=== PATIENT | male | born 1985 | race African-American/Black ===

== ENCOUNTER 2020-09-11 13:16 | Emergency (ER) | payer OTHER ==
[~2020-09-11] VITALS: Ht 185.4 cm; Wt 107.0 kg
[2020-09-11 13:20] VITALS: BP 128/85
--- NOTE | 2020-09-11 14:00 | NUR ---
per report triage patient Dc from [facility] .Noted agitation walking in the [address] back and forth Dr. ambrocio aware .
[2020-09-11] MEDS ORDERED: LORAZEPAM INJ 2 MG/ML VIAL ONE (14:30)
--- NOTE | 2020-09-11 14:51 | NUR ---
Patient is calm @ this time continue to monitor .
[2020-09-11 14:57] LABS: BASOPHILS # (AUTO) 0.1 /CMM (0.0-0.2); BASOPHILS % (AUTO) 1.3 % (0.0-2.0); EOSINOPHILS % (AUTO) 0.4 % (0.0-6.0); HEMATOCRIT 42 % (39-51); HEMOGLOBIN 14.2 g/dL (13.5-17.5); LYMPHOCYTES # (AUTO) 2.2 /CMM (0.8-4.8); LYMPHOCYTES % (AUTO) 26.2 % (20.0-44.0); MEAN CORPUSCULAR HGB CONC 34 g/dl (31.0-36.0); MEAN CORPUSCULAR VOLUME 88 fL (80-96); MONOCYTES # (AUTO) 0.6 /CMM (0.1-1.30); MONOCYTES % (AUTO) 7.2 % (2.0-12.0); NEUTROPHILS # (AUTO) 5.5 /CMM (1.8-8.9); NEUTROPHILS % (AUTO) 64.9 % (43.0-81.0); PLATELET COUNT (AUTO) 383 /CMM (150-450); RED BLOOD CELL COUNT(AUTO) 4.85 MIL/uL (4.5-6.0); WHITE BLOOD COUNT (AUTO) 8.5 K/uL (4.3-11.0)
[2020-09-11] MEDS ORDERED: diphenhydrAMINE HCL 50 MG/ML VIAL IM ONE (15:00)
[2020-09-11] MEDS ORDERED: METOCLOPRAMIDE HCL 10 MG TABLET PO ONE (15:00)
[2020-09-11] MEDS ORDERED: LORAZEPAM INJ 2 MG/ML VIAL IM ONE (15:00)
[2020-09-11] MEDS ORDERED: METOCLOPRAMIDE HCL 10 MG TABLET ONE (15:06)
[2020-09-11] MEDS ORDERED: diphenhydrAMINE HCL 50 MG/ML VIAL ONE (15:07)
[2020-09-11 15:09] LABS: ALANINE AMINOTRANSFERASE 67 U/L (12-78); ALBUMIN 3.7 g/dL (3.4-5.0); ALCOHOL, BLOOD < 3 mg/dL (0-0); ALKALINE PHOSPHATASE 74 U/L (46-116); ASPARTATE AMINOTRANSFERASE 56 U/L (15-37); BILIRUBIN,DIRECT 0.2 mg/dL (0.0-0.2); BILIRUBIN,TOTAL 0.9 mg/dL (0.2-1.0); CALCIUM, SERUM 9.3 mg/dL (8.5-10.1); CARBON DIOXIDE 26 mmol/L (21-32); CHLORIDE 99 mmol/L (98-107); CREATININE 1.1 mg/dL (0.6-1.3); GLUCOSE 107 mg/dL (74-106); POTASSIUM 3.5 mmol/L (3.5-5.1); SODIUM SERUM 136 mmol/L (136-145); TOTAL PROTEIN, SERUM 7.9 g/dL (6.4-8.2); UREA NITROGEN, BLOOD 15 mg/dL (7-18)
[2020-09-11 15:10] LABS: ACETAMINOPHEN < 2 ug/ml (10-30)
--- NOTE | 2020-09-11 15:21 | NUR ---
Patient came @ this time Urine obtained and send to lab .
--- NOTE | 2020-09-11 15:23 | NUR ---
Patient refuse benadryl and reglan .
[2020-09-11 15:26] LABS: BILIRUBIN,URINE Negative (NEGATIVE); COLOR,URINE YELLOW (YELLOW); LEUKOCYTE ESTERASE ,URINE Negative (NEGATIVE); NITRITE, URINE Negative (NEGATIVE); PROTEIN,URINE Negative (NEGATIVE); UGLUCOSE Negative (NEGATIVE); UROBILINOGEN,URINE 0.2 EU/dL (0.2)
[2020-09-11 15:27] LABS: BACTERIA,URINE Rare /HPF (None Seen); RBC,URINE NONE SEEN /HPF (0-2); SQUAMOUS EPITHELIAL CELL,UR Few /HPF (None Seen); WBC,URINE NONE SEEN /HPF (0-3)
--- NOTE | 2020-09-11 16:44 | NUR ---
Per report from Shayla Gonzales patient wants to Dc home and he wants to smoke and back forth he agrees for hisPMd to follow up noted patient alert orreinted able to ambulated non difficuties.
== END 2020-09-11 16:47 | disposition home or self-care (01) ==
LOC: ER 13:18
DX: F19.10 Other psychoactive substance abuse, uncomplicated (principal); F15.10 Other stimulant abuse, uncomplicated; F12.10 Cannabis abuse, uncomplicated; R07.89 Other chest pain; Z59.0 Homelessness
CPT/HCPCS: 36415; 70450; 71045; 80048; 80076; 80299; 80307; 80320; 81001; 85025; 93005; 96372; 99285; J1200; J2060; J8597; G0480

== ENCOUNTER 2020-09-11 17:09 | Emergency (ER) | payer OTHER ==
[~2020-09-11] VITALS: Ht 188 cm; Wt 108.9 kg
[2020-09-11 17:10] VITALS: BP 131/88
--- NOTE | 2020-09-11 17:13 | NUR ---
SEEN AND EXAMINED BY .
--- NOTE | 2020-09-11 17:35 | NUR ---
JANETTE CALLED [facility] 619 WILL DISPATCH A UNIT TO THE ER.
--- NOTE | 2020-09-11 17:51 | NUR ---
Patient discharged to home in stable condition. Written and verbal after care instructions given. Patient verbalizes understanding of instruction.
== END 2020-09-11 17:52 | disposition home or self-care (01) ==
LOC: ER 17:15
DX: F19.10 Other psychoactive substance abuse, uncomplicated (principal); F15.10 Other stimulant abuse, uncomplicated; F12.10 Cannabis abuse, uncomplicated; Z76.5 Malingerer [conscious simulation]; Z59.0 Homelessness

== ENCOUNTER 2020-09-11 19:51 | Emergency (ER) | payer OTHER ==
[~2020-09-11] VITALS: Ht 188 cm; Wt 108.9 kg
--- NOTE | 2020-09-11 19:56 | NUR ---
BIBRA C/O DIZZINESS S/P MARIJUANNA USE. PT WAS SEEN AND DISCHARGED MULTIPLE TIMES TODAY FROM [facility] ER, OFFERED CYBER POLICY AND STRATEGY PLANNER PRIOR TO DISCHARGE AND ALWAYS REFUSED. PT RETURNED TO ER REQUESTING CYBER POLICY AND STRATEGY PLANNER. PT AAOX4. AMBULATORY WITH STEADY GAIT. VITAL SIGNS STABLE. RESPIRATIONS EVEN AND UNLABORED. NO ACUTE DISTRESS NOTED AT THIS TIME.
--- NOTE | 2020-09-11 19:56 | NUR ---
DR. ECHEVARRIA WITH PATIENT FOR MEDICAL SCREENING EXAM
[2020-09-11 19:59] VITALS: BP 136/80
--- NOTE | 2020-09-11 20:00 | NUR ---
PER DR. 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 PT VERBALIZED UNDERSTANDING.
--- NOTE | 2020-09-12 14:39 | NUR ---
SW attempted to meet with pt. in [place]. However, pt. left. SW will be available if needed.
--- NOTE | 2020-09-12 14:50 | NUR ---
PT NO LONGER IN ED WAITING ROOM. SW UNABLE TO PROVIDE REFFERALS. PT LEFT BEFORE BEING SEEN.
== END 2020-09-12 14:50 | disposition home or self-care (01) ==
LOC: ER 19:52
DX: F19.10 Other psychoactive substance abuse, uncomplicated (principal); F10.10 Alcohol abuse, uncomplicated; Y90.9 Presence of alcohol in blood, level not specified; Z59.0 Homelessness; Z76.5 Malingerer [conscious simulation]

== ENCOUNTER 2021-10-03 20:41 | Emergency (ER) | payer OTHER ==
[~2021-10-03] VITALS: Ht 185.4 cm; Wt 108.9 kg
--- NOTE | 2021-10-03 21:09 | NUR ---
PT BIBSELF C/O FEELING DEPRESSED AND ANXIOUS. PER PT HE DID METH X2 DAYS AGO. PT AAOX4 BREATHING EVENLY AND UNLABORED. PT DENIES SI/HI. PT GIVEN BLANKET AND CALL LIGHT WITHIN REACH
[2021-10-03] MEDS ORDERED: LORAZEPAM INJ 2 MG/ML VIAL ONE (21:38)
[2021-10-03] MEDS ORDERED: OLANZAPINE 5 MG TABLET ONE (21:38)
--- NOTE | 2021-10-03 21:47 | NUR ---
Patient discharged to home in stable condition. Written and verbal after care instructions given. Patient verbalizes understanding of instruction. Pt ambulatory with a steady gait
[2021-10-03 21:52] VITALS: BP 140/73
[2021-10-03] MEDS ORDERED: OLANZAPINE 5 MG TABLET PO ONE (22:00)
[2021-10-03] MEDS ORDERED: LORAZEPAM INJ 2 MG/ML VIAL IM ONE (22:00)
== END 2021-10-03 21:47 | disposition home or self-care (01) ==
LOC: ER 20:41
DX: F15.959 Other stimulant use, unspecified with stimulant-induced psychotic disorder, unspecified (principal); F17.200 Nicotine dependence, unspecified, uncomplicated; F12.90 Cannabis use, unspecified, uncomplicated; Z59.00 Homelessness unspecified
CPT/HCPCS: 96372; 99283; 99406; J2060

== ENCOUNTER 2024-01-08 04:01 | Emergency (ER) | payer OTHER ==
[~2024-01-08] VITALS: Ht 188 cm; Wt 102.1 kg
[2024-01-08 04:06] VITALS: BP 153/91; TEMP 98; O2SAT 97
[2024-01-08] MEDS ORDERED: LORAZEPAM INJ 2 MG/ML VIAL ONE ×2 (04:27→05:32)
[2024-01-08] MEDS: LORAZEPAM INJ 2 MG/ML VIAL IM ONE ×2 (04:32→05:39)
[2024-01-08] MEDS ORDERED: GABAPENTIN 300 MG CAPSULE ONE (04:33)
[2024-01-08] MEDS: GABAPENTIN 100 MG CAPSULE PO ONE (04:36)
[2024-01-08] MEDS ORDERED: CYCLOBENZAPRINE 10 MG TABLET PO ONE (05:30)
[2024-01-08] MEDS ORDERED: KETOROLAC TROMETHAMINE INJ 30 MG/ML VIAL ONE (05:31)
[2024-01-08] MEDS ORDERED: BACLOFEN (10 MG) 10 MG TABLET ONE (05:32)
[2024-01-08] MEDS ORDERED: GABA-536 PO (05:39)
[2024-01-08] MEDS: KETOROLAC TROMETHAMINE INJ 30 MG/ML VIAL IM ONE (05:39)
[2024-01-08] MEDS ORDERED: DULO60CA45 PO (05:39)
[2024-01-08] MEDS: BACLOFEN (10 MG) 10 MG TABLET PO ONE (05:40)
[2024-01-08] MEDS ORDERED: diphenhydrAMINE HCL 50 MG/ML VIAL ONE (05:41)
[2024-01-08] MEDS: diphenhydrAMINE HCL 50 MG/ML VIAL IM ONE (05:41)
[2024-01-08] MEDS ORDERED: LORA-259 PO (05:50)
== END 2024-01-08 06:23 ==
LOC: ER 04:03
DX: R20.2 Paresthesia of skin (principal); M79.2 Neuralgia and neuritis, unspecified; G82.20 Paraplegia, unspecified; F10.10 Alcohol abuse, uncomplicated; F19.10 Other psychoactive substance abuse, uncomplicated; F17.200 Nicotine dependence, unspecified, uncomplicated; Y90.9 Presence of alcohol in blood, level not specified
CPT/HCPCS: 99284; 96372 ×4; J2060 ×2; J1200; J1885